=== PATIENT | male | born 1940 | race Caucasian/White ===

== ENCOUNTER 2018-09-20 16:18 | Inpatient (IN) ==
[2018-09-20] MEDS ORDERED: NS 1,000 ML IV ONE (17:16)
[2018-09-20] MEDS ORDERED: FLOMAX PO ONE (17:17)
[2018-09-20 17:53] LABS: HEMATOCRIT 24.6 % (42.0-52.0); HEMOGLOBIN 7.9 g/dL (14.0-18.0); MCH 30.3 PG (27-31); MCHC 32.1 g/dL (33-37); MCV 94.3 FL (81-99); MPV 8.8 FL (7.4-10.4); PLT 244 X1000 (130-400); RBC 2.61 XMIL (4.7-6.1); WBC 28.92 X1000 (4.8-10.8)
[2018-09-20 17:54] LABS: BASO# 0.05 X1000 (0.0-0.2); BASO% 0.2 % (0.0-0.8); EOS# 0.01 X1000 (0.0-0.7); IMM GRAN# 1.43 X1000 (0.0-0.04); IMM GRAN% 4.9 % (0.0-0.5); LYMPH# 0.51 X1000 (1.2-3.4); LYMPH% 1.8 % (20.5-51.1); MONO# 1.68 X1000 (0.11-0.59); MONO% 5.8 % (1.7-9.3); NEUT# 25.24 X1000 (1.4-6.5); NEUT% 87.3 % (42.2-75.2)
[2018-09-20 18:06] LABS: ALBUMIN 2.9 g/dL (3.5-5.0); CALCIUM 7.5 mg/dL (8.8-10.2); CREATININE 3.4 mg/dL (0.7-1.2); POTASSIUM 4.9 mmol/L (3.5-5.1); TOTAL BILIRUBIN 0.28 mg/dL (0.20-1.00); TOTAL PROTEIN 5.7 g/dL (6.3-8.3)
[2018-09-20 18:18] LABS: INR 1.01; PROTIME 14.1 Seconds (11.0-16.0)
[2018-09-20 18:19] LABS: PTT 36.6 Seconds (22.3-41.8)
[2018-09-20] MEDS ORDERED: ROCEPHIN 1 GM in NS 50 ML IV ONE (18:21)
[2018-09-20] MEDS ORDERED: NS 500 ML IV ONE (18:21)
[2018-09-20 18:27] LABS: URINE SOURCE CLEAN CATCH
[2018-09-20 18:28] LABS: BILIRUBIN URINE NEGATIVE (NEGATIVE); BLOOD URINE SMALL (NEGATIVE); COLOR YELLOW; GLUCOSE URINE NEGATIVE (NEGATIVE); KETONE URINE NEGATIVE (NEGATIVE); LEUKOCYTES URINE NEGATIVE (NEGATIVE); NITRITE URINE NEGATIVE (NEGATIVE); PH URINE 5.5; PROTEIN URINE 50 mg/dL (NEGATIVE); SP GRAVITY URINE 1.011; TURBIDITY URINE CLEAR (CLEAR); UROBILINOGEN URINE NORMAL (NORMAL)
--- NOTE | 2018-09-20 18:28 | PROVIDER DOCUMENTATION ---
HPI-Male Problem - General Chief Complaint: Flank Pain Stated Complaint: KIDNEY STONE --CANCER PT-FAMILY ROOM Time Seen by Provider: 09/20/18 16:53 Source: patient Allergies/Adverse Reactions: Patient Allergies Allergy/AdvReac Type Severity Reaction Status Date / Time No Known Allergies Allergy Verified 02/20/12 08:53 Home Medications: Home Medication List Medication Instructions Recorded Confirmed Last Taken Type Cyanocobalamin/Folic Acid [Vitamin 1 each PO DAILY 02/20/12 09/20/18 02/20/12 07:00 History [id number] Acid Tablet] Lisinopril [Zestril] 10 mg PO DAILY 02/20/12 09/20/18 02/20/12 07:00 History Metoprolol/Hydrochlorothiazide 1 each PO BID 02/20/12 09/20/18 02/20/12 07:00 History [Lopressor Hct 50-25 Tablet] SIMVAstatin [Zocor] 40 mg PO QHS 02/20/12 09/20/18 02/20/12 07:00 History Aspirin 325 mg PO DAILY 09/20/18 09/20/18 Unknown History Insulin Aspart [Novolog Flexpen] 100 units SQ PRN 09/20/18 09/20/18 Unknown History Insulin Detemir [Levemir Flextouch] 15 unit SQ HS 09/20/18 09/20/18 Unknown History - History of Present Illness-Male Nature of Presenting Problem: HPI: Pt presents from his cancer center after having labs drawn at their facility, he had a UTI and was sent to US for renal study. He had a 7mm stone in r ureter, obstructing with hydronephrosis. He states he was given a 1 l bolus of NS and levaquin. he has a history of RI and small cell lung cancer. He complains of right sided flank pain. Location of Complaint: reports: right flank Radiation: reports: periumbilical Quality of Pain: reports: none Severity in ED: reports: mild Onset/Duration: reports: 2 days ago Timing: reports: improving Context/Activities at Onset: reports: none Urinary Symptoms: reports: hematuria Associated Symptoms: reports: none Associated Symptoms: reports: cough, malaise, weakness Similar Symptoms Previously?: Yes Recently seen or treated by another doctor?: No Review of Systems - Adult - REVIEW OF SYSTEMS - ADULT Constitutional: reports: fatique, weight loss Eyes: reports: no symptoms reported Ears, Nose, Mouth & Throat: reports: no symptoms reported Cardiovascular: reports: no symptoms reported Respiratory: reports: no symptoms reported Gastrointestinal: reports: see HPI Genitourinary: reports: no symptoms reported Musculoskeletal: reports: no symptoms reported Integumentary: reports: no symptoms reported Neurological: reports: no symptoms reported Psychiatric: reports: no symptoms reported Endocrine: reports: no symptoms reported Hematologic/Lymphatic: reports: no symptoms reported Allergic/Immunologic: reports: no symptoms reported All Other Systems: Reviewed and Negative Past History - Adult - PAST MEDICAL HISTORY-ADULT Review of Records: reports: Old Records Reviewed, Nursing Assessment Review, Medications Reviewed, Social history reviewed & non-contributory. Major Childhood Illnesses: reports: denies history Cardiovascular: reports: denies history Respiratory: reports: cancer Gastrointestinal: reports: denies history Obstetrical/Gynecological: reports: denies history Genitourinary: reports: kidney stones Musculoskeletal: reports: denies history Neurological: reports: denies history Endocrine/Immune: reports: denies history Other Conditions: reports: denies history - IMMUNIZATION STATUS Childhood Immunizations: See Nurse Assessment Flu Vaccine: See Nurse Assessment - FAMILY HISTORY Family History: reviewed, not pertinent - SOCIAL HISTORY Smoking: denies Substance Use: none/never Alcohol Use Frequency: never Living Situation: family Physical Exam-General - PHYSICAL EXAM-ADULT Initial Vital Signs Reviewed: Yes - CONSTITUTIONAL General Appearance: appears well, alert - EYES Eyes: PERRL/EOMI, pink conjunctivae - HEAD, EARS, NOSE, MOUTH & THROAT HENMT: normocephalic/atraumatic, moist mucous membranes - NECK Neck: non-tender, full range of motion - RESPIRATORY Respiratory: chest non-tender, lungs clear, normal breath sounds. negative: crackles, rales, rhonchi, stridor, wheezing - CARDIOVASCULAR Cardiovascular: normal peripheral pulses, regular rate, rhythm, no edema - GASTROINTESTINAL (ABDOMEN) Abdominal Exam: normal bowel sounds, non tender, soft - MUSCULOSKELETAL Back Exam: CVA tenderness Extremity: normal range of motion, non-tender, normal gait Peripheral Pulses: radial (R): 2+, radial (L): 2+, dorsalis-pedis (R): 2+, dorsalis-pedis (L): 2+ - SKIN Integumentary: normal color, normal turgor, warm/dry - NEUROLOGIC Neurologic: grossly normal - PSYCHIATRIC Psych/Mental Status: normal mood/affect, normal thought content, normal thought process, oriented x 3 Progress - PLAN OF CARE/RESULTS Progress/Plan/Lab Results: Vital Signs - 8 hr 09/20/18 16:35 09/20/18 17:52 09/20/18 17:58 Temperature 98.5 F 100.1 F H Pulse Rate 108 H 100 H 101 H Respiratory Rate 20 30 H 30 H Blood Pressure 130/77 141/67 141/67 O2 Sat by Pulse Oximetry 94 L 92 L 92 L 09/20/18 18:00 09/20/18 18:01 09/20/18 19:01 Temperature Pulse Rate 100 H 101 H 98 H Respiratory Rate 35 H 30 H 16 Blood Pressure 138/79 141/81 O2 Sat by Pulse Oximetry 93 L 92 L 97 Laboratory Results - last 24 hr 09/20/18 09/20/18 09/20/18 17:35 17:35 17:35 WBC 28.92 H RBC 2.61 L Hgb 7.9 L Hct 24.6 L MCV 94.3 MCH 30.3 MCHC 32.1 L RDW Std Deviation 19.0 H Plt Count 244 MPV 8.8 Immature Gran % (Auto) 4.9 H Neut % (Auto) 87.3 H Lymph % (Auto) 1.8 L Navarro % (Auto) 5.8 Eos % (Auto) 0.0 Baso % (Auto) 0.2 Immature Gran # (Auto) 1.43 H Neut # (Auto) 25.24 H Lymph # (Auto) 0.51 L Navarro # (Auto) 1.68 H Eos # (Auto) 0.01 Baso # (Auto) 0.05 PT INR PTT (Actin FS) Sodium 131 L Potassium 4.9 Chloride 98 Carbon Dioxide 20 L Anion Gap 13 BUN 38 H Creatinine 3.4 H Estimated GFR/1.73 m2 18 BUN/Creatinine Ratio 11 Glucose 136 H Calculated Osmolality 274 Calcium 7.5 L Total Bilirubin 0.28 AST 19 ALT 30 Alkaline Phosphatase 161 H Creatine Kinase Troponin T Total Protein 5.7 L Albumin 2.9 L Globulin 2.8 Albumin/Globulin Ratio 1.0 Plasma Lactate 0.8 Urine Source Urine Color Urine Turbidity Urine pH Ur Specific Loving Urine Protein Ur Glucose (Stick) Ur Ketones (Stick) Urine Blood Urine Nitrite Urine Bilirubin Urobilinogen Dipstick Urine Leukocytes Urine WBC (Auto) Urine RBC (Auto) U Epithel Cells (Auto) Urine Bacteria (Auto) Urine Crystals Small Round Cells Urine Casts Urine Yeast-like Cells 09/20/18 09/20/18 09/20/18 17:35 17:35 17:35 WBC RBC Hgb Hct MCV MCH MCHC RDW Std Deviation Plt Count MPV Immature Gran % (Auto) Neut % (Auto) Lymph % (Auto) Navarro % (Auto) Eos % (Auto) Baso % (Auto) Immature Gran # (Auto) Neut # (Auto) Lymph # (Auto) Navarro # (Auto) Eos # (Auto) Baso # (Auto) PT 14.1 INR 1.01 PTT (Actin FS) 36.6 Sodium Potassium Chloride Carbon Dioxide Anion Gap BUN Creatinine Estimated GFR/1.73 m2 BUN/Creatinine Ratio Glucose Calculated Osmolality Calcium Total Bilirubin AST ALT Alkaline Phosphatase Creatine Kinase 33 Troponin T 0.024 Total Protein Albumin Globulin Albumin/Globulin Ratio Plasma Lactate Urine Source Urine Color Urine Turbidity Urine pH Ur Specific Loving Urine Protein Ur Glucose (Stick) Ur Ketones (Stick) Urine Blood Urine Nitrite Urine Bilirubin Urobilinogen Dipstick Urine Leukocytes Urine WBC (Auto) Urine RBC (Auto) U Epithel Cells (Auto) Urine Bacteria (Auto) Urine Crystals Small Round Cells Urine Casts Urine Yeast-like Cells 09/20/18 18:00 WBC RBC Hgb Hct MCV MCH MCHC RDW Std Deviation Plt Count MPV Immature Gran % (Auto) Neut % (Auto) Lymph % (Auto) Navarro % (Auto) Eos % (Auto) Baso % (Auto) Immature Gran # (Auto) Neut # (Auto) Lymph # (Auto) Navarro # (Auto) Eos # (Auto) Baso # (Auto) PT INR PTT (Actin FS) Sodium Potassium Chloride Carbon Dioxide Anion Gap BUN Creatinine Estimated GFR/1.73 m2 BUN/Creatinine Ratio Glucose Calculated Osmolality Calcium Total Bilirubin AST ALT Alkaline Phosphatase Creatine Kinase Troponin T Total Protein Albumin Globulin Albumin/Globulin Ratio Plasma Lactate Urine Source CLEAN CATCH Urine Color YELLOW Urine Turbidity CLEAR Urine pH 5.5 Ur Specific Loving 1.011 Urine Protein 50 A Ur Glucose (Stick) NEGATIVE Ur Ketones (Stick) NEGATIVE Urine Blood SMALL A Urine Nitrite NEGATIVE Urine Bilirubin NEGATIVE Urobilinogen Dipstick NORMAL Urine Leukocytes NEGATIVE Urine WBC (Auto) <10 Urine RBC (Auto) <10 U Epithel Cells (Auto) <10 Urine Bacteria (Auto) NEGATIVE Urine Crystals Not Reportable Small Round Cells Not Reportable Urine Casts Not Reportable Urine Yeast-like Cells PRESENT Orders Category Date Time Status Cardiac Monitoring DIRECTED Care 09/20/18 17:58 Active IV Insertion ORDERED Care 09/20/18 17:58 Completed Notify MD of + Sepsis Screen NOW Care 09/20/18 17:58 Active Notify Physician As Ordered Care 09/20/18 17:58 Active Saline Loc NOW Care 09/20/18 17:17 Active NPO Diet 09/21/18 00:01 Active CHEST-1 VIEW [RAD] Stat Exams 09/20/18 17:58 Completed BLOOD CULTURE [BLDCUL] Stat Lab 09/20/18 17:35 Results CBC WITH ELECTRONIC DIFF [HEME] Stat Lab 09/20/18 17:35 Completed CK PROFILE [SP CHEM] Stat Lab 09/20/18 17:35 Completed COMPREHENSIVE METABOLIC PANEL [CHEM] Stat Lab 09/20/18 17:35 Completed LACTATE, PLASMA [CHEM] Lab 09/20/18 21:00 Uncollected LACTATE, PLASMA [CHEM] Lab 09/21/18 00:00 Uncollected LACTATE, PLASMA [CHEM] Q3H Lab 09/20/18 17:35 Completed LACTATE, PLASMA [CHEM] Stat Lab 09/20/18 19:23 Uncollected PROTIME WITH INR [COAG] Stat Lab 09/20/18 17:35 Completed PTT [COAG] Stat Lab 09/20/18 17:35 Completed TROPONIN T Stat Lab 09/20/18 17:35 Completed URINALYSIS W/POSS RFLX CULT [URINALYSIS] Stat Lab 09/20/18 18:00 Completed URINE MANUAL MICROSCOPIC [URINALYSIS] Stat Lab 09/20/18 18:00 Completed 0.9% Sodium Chloride Inj [Ns] 1,000 ml Med 09/20/18 17:16 Discontinued IV 999 mls/hr 0.9% Sodium Chloride Inj [Ns] 500 ml Med 09/20/18 18:21 Discontinued IV Wide Open mls/hr CefTRIAXONE [Rocephin] 1 gm Med 09/20/18 18:21 Discontinued 0.9% Sodium Chloride Inj [Ns] 50 ml IV NOW Tamsulosin [Flomax] Med 09/20/18 17:17 Discontinued 0.4 mg PO NOW ONE Oxygen Device Stat Oth 09/20/18 17:58 Active A/P: UTI/ Nephrolithisis 7 mm on R obstructing stone. Elevated WBC. Dr franco will do procedure tomorrow. AB started, sepsis protocol started. Pt not in pain at the moment. admit to Dr bee. Vitals stable. Result Diagrams: 09/20/18 17:35 09/20/18 17:35 - XRAY 1 XRAY Study: Chest Impression: Normal ([facility] [address] , [address], [place] [address] Department of Imaging Patient: DENISSE GROVER EADM Date: 09/20/18#: [id number] : 1940DM [facility] [id number] Age/Sex: 77/MRoom/Bed: Loc: ED Ordering Physician: Thierry Thompson MD Family Physician: Primo Walker MD Reason for Procedure: sepsis ___ Signed EXAM: CHEST-1 VIEW - 09/20/2018 HISTORY: sepsis TECHNIQUE: Portable chest COMPARISON: 02/20/2012 FINDINGS: Heart size appears upper normal. There are sternal wires from interval surgery. There is opacity at the medial right base which may relate to atelectasis, consolidation, or mass lesion. The remainder of the lungs appear essentially clear. There is no pleural effusion or pneumothorax identified. IMPRESSION: Opacity at medial right base which may relate to atelectasis, consolidation, or mass lesion. Electronically signed by Zelalem Solo 09/20/2018 6:43 PM 09/20/18 1843 Interpreting Physician: Zelalem Solo MD Dictated Date/Time: 09/20/18 1840 cc: Thierry Thompson MD; Primo Walker MD) - CONSULTS/PCP/HOSPITALIST Notification #1 *Consult/PCP/Hospitalist*: Dr Bee Time Discussed: 19:33 Consult Disposition: Admit Departure - Departure Date of Disposition Decision: 09/20/18 Time of Disposition Decision: 19:32 DIAGNOSIS: Nephrolithiasis Disposition: ADMITTED INPATIENT 09 Certified Medical Emergency: Emergent Condition: Stable Additional Freetext Instructions: We have examined and treated you today on an emergency basis only. This was not a substitute for, or an effort to provide, complete medical care. In most cases, you must let your doctor check you again. Tell your doctor about any new or lasting problems. We cannot recognize and treat all injuries or illnesses in one Emergency Department visit. If you had special tests, such as X-rays or CT scans, will be reviewed by radiologist and will call you if there are any new suggestions Follow up with primary care provider in 1 to 2 days if no improvement. If you do not have a primary care provider, you need to choose one as soon as possible. Take medicines as prescribed. Monitor for any side effects or adverse events from medications. If any side effect, adverse event or rash develops, or if you suspect any other adverse reaction to the medication, then discontinue the medication immediately and contact clinic /PCP or go to the nearest ER. Narcotic meds / sedative meds instruction - patent advised not to drive, operate any machinery or go into water after taking meds as it may impair mental ability to react to the situation in an appropriate manner. Continue other current medicines. Follow up with PCP within 24-48 hours, or sooner if symptoms worsen or fail to improve. Patient / guardian verbalizes understanding of treatment plan, medication, and side effects and agrees with treatment plan. Patient leaves ER in stable condition and ambulatory state. Return to ER as needed. Discharge instructions reviewed verbally and given to patient in written form. Follow up with primary care provider. Referrals and Follow-Ups: Primo Walker MD [Primary Care Provider] - - Critical Care Note This patient required my direct & personal management of CC.: No Attestation - Physician/ CIARRA Attestation Patient care was provided by Advanced Practice Provider:: No The physician spent face to face time with patient:: Yes Advanced Practice Provider documentation review:: Supervising physician onsite and consulted in the evaluation and care of this patient. The physician did have a face to face encounter with the patient.
[2018-09-20 18:33] LABS: UR EPITHELIAL CELLS <10 /HPF (<10); URINE BACTERIA NEGATIVE /HPF; URINE RBC <10 /HPF (<10); URINE WBC <10 /HPF (<10)
[2018-09-20 18:39] LABS: URINE YEAST PRESENT
--- NOTE | 2018-09-20 18:46 | Diag Imaging Result Doc PS360 ---
EXAM: CHEST-1 VIEW - 09/20/2018 HISTORY: sepsis TECHNIQUE: Portable chest COMPARISON: 02/20/2012 FINDINGS: Heart size appears upper normal. There are sternal wires from interval surgery. There is opacity at the medial right base which may relate to atelectasis, consolidation, or mass lesion. The remainder of the lungs appear essentially clear. There is no pleural effusion or pneumothorax identified. IMPRESSION: Opacity at medial right base which may relate to atelectasis, consolidation, or mass lesion. Electronically signed by Zelalem Solo 09/20/2018 6:43 PM
--- NOTE | 2018-09-20 21:51 | HISTORY AND PHYSICAL ---
PRIMARY CARE PHYSICIAN: Dr. Primo Walker. CHIEF COMPLAINT: Fever, chills. HISTORY OF PRESENTING ILLNESS: A 77-year-old male with a history of diabetes mellitus type 2, hypertension, AAA, recent diagnosis of lung cancer, and recent coronary bypass, who had presented to his cancer center for treatment, and at that time, he had labs drawn which did show he had acute kidney injury. He was apparently sent for an ultrasound which did show a left hydronephrosis with suspected ureteral stone and also a 7 mm stone in the right ureter. His findings were discussed with his urologist by the ER physician, and it was thought that he would need admission for further management. At the time of my examination, the patient had denied any headache, chest pain, shortness of breath, or any weight changes but stated that he did not feel well. PAST MEDICAL HISTORY: Includes diabetes mellitus type 2; hypertension; BPH; AAA; nephrolithiasis; lung cancer recently diagnosed, on chemotherapy; coronary artery disease, status post coronary bypass recently on August 11; atrial fibrillation. PAST SURGICAL HISTORY: Coronary bypass, AAA repair, lithotripsy. ALLERGIES: No known drug allergies. CURRENT MEDICATIONS: Include aspirin 325 mg p.o. daily, NovoLog FlexPen dosage not know, Levemir 15 units subcutaneous at bedtime, lisinopril 10 mg p.o. daily, metoprolol/hydrochlorothiazide 50/25 1 p.o. b.i.d., simvastatin 40 mg p.o. at bedtime. SOCIAL HISTORY: He is a former smoker. No history of alcohol or illicit drug use. FAMILY HISTORY: No history of coronary disease. REVIEW OF SYSTEMS: Fourteen-point review of system is as in HPI. Other systems negative. PHYSICAL EXAMINATION: GENERAL: Cooperative, friendly male. He is resting more comfortably now. VITAL SIGNS: Temperature 100.1 degrees, pulse 100, respiration 30, blood pressure 141/67. HEENT: Atraumatic, normocephalic. Extraocular movements intact. PERRLA. NECK: No masses. CHEST: Bibasilar rales. CARDIOVASCULAR: Regular rate and rhythm. ABDOMEN: Soft. Positive bowel sounds. EXTREMITIES: No edema. NEUROLOGIC: He is awake, alert, oriented x3. GENITOURINARY: No bladder distention. SKIN: Warm. LABORATORIES AND STUDIES: Sodium 131, potassium 4.9, chloride 98, CO2 is 20, creatinine 3.4, glucose is 136. WBCs 28.92, hemoglobin 7.9, hematocrit 24.6, platelets 224,000. UA shows small blood. ASSESSMENT: This is a 77-year-old male with a history of diabetes mellitus type 2, hypertension, recent diagnosis of lung cancer, status post coronary bypass recently, who initially had presented to his cancer center, and at that time, he had laboratories drawn which it was suspected he had a urinary tract infection. It was also noted that he had a markedly elevated white count. He was sent for an ultrasound at [facility] which did show a left hydronephrosis with possible stone and also a right ureteral 7 mm stone. The case was discussed with Urology who recommended the patient be admitted for further management. 1. Left hydronephrosis with suspected ureteral stone. 2. Right ureteral stone at 7 mm. 3. Acute kidney injury. 4. Leukocytosis. 5. Coronary artery disease, status post recent coronary bypass. 6. Recent diagnosis of lung cancer, on chemotherapy. 7. Diabetes mellitus type 2. 8. Hypertension. PLAN: 1. We will admit the patient to medical floor with telemetry. 2. We will keep the patient NPO. 3. We will give him adequate pain control and antiemetics as needed. 4. We will continue with gentle hydration. 5. We will consult Urology. 6. We will check blood cultures, and the patient will be started on antibiotics 7. We will monitor his renal function. 8. We will obtain records of his recent coronary bypass and recent chemotherapy. 9. We will monitor blood glucose and put the patient on sliding scale insulin regimen. 10. We will monitor blood pressure and resume antihypertensive agents. 11. We will put the patient on deep vein thrombosis prophylaxis. SCDs. 12. We will continue to follow and reassess and make further recommendation based on the patient's clinical course. cc: MD Primo Mitchell MD MTDD
[2018-09-20] MEDS ORDERED: ZOFRAN IV PRN (22:10)
[2018-09-20] MEDS: HUMULIN R SUBQ SCH (22:45)
[2018-09-20] MEDS: ZOSYN 2.25 GM in NS 50 ML IV SCH (23:00)
[2018-09-20] MEDS: NS 1,000 ML IV SCH (23:00)
[2018-09-21] MEDS: ZOSYN 2.25 GM in NS 50 ML IV SCH ×4 (03:56→20:32)
[2018-09-21] MEDS: HUMULIN R SUBQ SCH ×4 (06:08→21:00)
[2018-09-21 08:01] LABS: BASO# 0.05 X1000 (0.0-0.2); BASO% 0.3 % (0.0-0.8); HEMATOCRIT 23.6 % (42.0-52.0); HEMOGLOBIN 7.5 g/dL (14.0-18.0); IMM GRAN# 1.21 X1000 (0.0-0.04); IMM GRAN% 6.1 % (0.0-0.5); LYMPH# 0.48 X1000 (1.2-3.4); LYMPH% 2.4 % (20.5-51.1); MCH 30.5 PG (27-31); MCHC 31.8 g/dL (33-37); MCV 95.9 FL (81-99); MONO# 1.29 X1000 (0.11-0.59); MONO% 6.5 % (1.7-9.3); MPV 8.7 FL (7.4-10.4); NEUT# 16.96 X1000 (1.4-6.5); NEUT% 84.7 % (42.2-75.2); PLT 274 X1000 (130-400); RBC 2.46 XMIL (4.7-6.1); WBC 19.99 X1000 (4.8-10.8)
[2018-09-21 08:17] LABS: CALCIUM 7.3 mg/dL (8.8-10.2); CREATININE 3.7 mg/dL (0.7-1.2); POTASSIUM 4.8 mmol/L (3.5-5.1)
[2018-09-21] MEDS ORDERED: LOPRESSOR PO ONE (09:02)
--- NOTE | 2018-09-21 09:50 | CONSULTATION ---
DATE OF CONSULTATION: 09/21/2018 ATTENDING AND REFERRING PHYSICIAN: Hospitalist. HISTORY OF PRESENT ILLNESS: This 77-year-old male with history of renal lithiasis and lung cancer was going to start his 2nd round of chemotherapy. He was noted to have a marked increase in his creatinine level. A renal ultrasound revealed marked left hydroureteronephrosis down to a probable 7 mm stone obstructing the left ureter. Also noted was a probable right renal stone that was nonobstructing. The patient states he has passed many stones throughout his life. He states he has had shockwave lithotripsy for stones. He currently denies any pains. He states he has had one previous round of chemotherapy, and was to start his second round yesterday. PAST MEDICAL HISTORY: Diabetes, hypertension, elevated cholesterol, peripheral vascular disease, coronary artery disease, history of renal lithiasis, nondisplaced pelvic and left hip fracture 6 years ago, and lung cancer. CURRENT MEDICATIONS: Documented on the chart. PAST SURGICAL HISTORY: Open abdominal aortic aneurysm repair, coronary artery bypass grafting, and extracorporeal shockwave lithotripsy. SOCIAL HISTORY: He smoked cigarettes for many years but none for a year. ETOH use rare. ALLERGIES: No known drug allergies. REVIEW OF SYSTEMS: He states he was feeling well. He has had no recent pulmonary or bowel problems. He states he is breathing without difficulty. He has had no stroke or seizure. PHYSICAL EXAMINATION: General: A normally developed, well-nourished, age apparent, white male, oriented in all ways and cooperative. HEENT: Normal for age. Lungs: Clear. Cardiovascular: Regular rate and rhythm. Abdomen: Flat. Soft, nontender. No hepatosplenomegaly or masses. Normal bowel sounds. Back: No CVA tenderness at present. : Normal male. Both testes down. Scrotal exam is normal. No inguinal hernias. Rectal: Deferred until surgery. Extremities: No clubbing, cyanosis or edema. Neurologic: No focal deficits. LABORATORY: On evaluation, he has a white count at admission of 28.9 thousand. After IV antibiotics, his white count today is 19.9 thousand. His hemoglobin 7.5, hematocrit 23.6 and platelets are 274,000. Serum sodium is 132, potassium 4.8, chloride 100, bicarb 19, BUN 37, and creatinine 3.7. Renal ultrasound is as noted in the HPI. IMPRESSION: 1. Patient with multiple medical problems and a probable left distal ureteral stone with left hydroureteronephrosis. There is also a right renal stone. 2. Left pyelonephritis. PLAN: Cystoscopic exam, bilateral retrograde ureteral pyelograms, left ureteroscopy with basket extraction of stone or laser lithotripsy as needed. Placement of a left double-J stent. The planned procedure, benefits versus risks, and possible complications, including, but not limited to, bleeding, infection, not finding a stone, not finding a cause for the obstructed left system, not finding the ureteral orifices, need for further surgery was discussed. He seems to understand and desires to proceed. cc: MD Primo Moncada MD
[2018-09-21] MEDS: NS 1,000 ML IV SCH ×2 (10:30→21:53)
[2018-09-21 10:53] LABS: BANDS 4 % (0-1); LYMPHS 2 % (21-51); MONO 7 % (1-9); SEGS 83 % (42-75)
[2018-09-21 10:54] LABS: ANISOCYTOSIS 1+; POLYCHROM 1+
[2018-09-21] MEDS ORDERED: DIPRIVAN 1% ONE (11:50)
[2018-09-21] MEDS ORDERED: XYLOCAINE-MPF 2% ONE (11:50)
[2018-09-21] MEDS ORDERED: TYLENOL PO PRN (12:39)
[2018-09-21] MEDS ORDERED: NEOSPORIN G.U. IRRIGANT ONE (12:52)
[2018-09-21] MEDS ORDERED: OFIRMEV 1000 MG/ISOTONIC SOLN 1,000 MG/100 ML BOTTLE ONE (12:59)
[2018-09-21] MEDS ORDERED: NEO-SYNEPHRINE ONE (13:05)
[2018-09-21] MEDS ORDERED: ZOFRAN ONE (13:05)
[2018-09-21] MEDS ORDERED: SODIUM CHLORIDE 0.9% 10 ML ONE (13:05)
[2018-09-21] MEDS ORDERED: PITRESSIN ONE (13:16)
[2018-09-21] MEDS ORDERED: QUELICIN (DOSE) ONE (13:32)
--- NOTE | 2018-09-21 14:20 | PROGRESS NOTE ---
DATE: 09/21/2018 INTERVAL HISTORY: Mr. Calderon was admitted for suspected urosepsis, acute pyelonephritis and acute renal failure and acute left-sided hydronephrosis. He does have recent history of CABG and newly diagnosed lung cancer. He did have spikes of fever overnight. I saw him in his room. His and family is at bedside. I discussed with them about my exam finding. He currently denies any nausea, vomiting. He is feeling better. He still has some occasional abdominal pain. Oral cavity is moist. Vitals suggest temperature of 101 degrees, pulse of 97, respiratory rate 20, blood pressure 135/61, saturating 91% on room air. PHYSICAL EXAMINATION: Appears very weak and tremulous and appears to have chills. Oral cavity is moist. Air entry bilaterally equal. He has inspiratory crackles bilateral infrascapular region. No wheeze or rhonchi. S1, S2 normal. No murmur or gallop. Abdomen soft, nontender. Active bowel sounds he has bilateral lower extremity edema. He has well-healing scar of CABG on the chest, a groin incision on the right and a venesection scar on the left lower extremity which all have been healing well. LABS: Suggestive of persistent leukocytosis, normocytic anemia, normal platelet count, hyponatremia, hypochloremia, what appears to be acute kidney injury, looks like his baseline creatinine was 1.3 in 2012. Urinalysis was unremarkable though. Microbiology. Blood cultures are in lab reports. Renal ultrasound had suggested left-sided hydronephrosis and suspected left stone. ASSESSMENT AND PLAN: 1. Urosepsis from suspected left acute pyelonephritis because of left ureteric stone leading to obstruction. Continue intravenous fluids, intravenous Zosyn. Follow up with final blood culture results. I will consider sending another urine culture if required. The initial urine culture has not shown any growth. 2. Acute kidney injury. His baseline creatinine according to previous record was 1.4 in 2012, his current suspected acute kidney injury likely could be in the setting of post obstructive renal failure. Continue intravenous fluids and follow up serial kidney function. Urologist has been consulted and patient is likely to undergo cystoscopy, bilateral retrograde pyelogram and left ureteric double-J stent today. I will continue to monitor kidney function. 3. History of coronary artery disease, myocardial infarction and coronary artery bypass graft in August 2018. Continue atorvastatin. I will resume his aspirin after cleared by Urology in next 48 hours and I will start him on his metoprolol as tolerated. 4. History of insulin-dependent diabetes mellitus. I will continue frequent blood sugar checks and sliding scale insulin. 5. Recent diagnosis of right lower lung cancer. He is currently on chemotherapy. 6. Disposition. Patient's condition is serious. I will continue to closely monitor his vitals and keep him on telemetry. Plan of care discussed with patient and his family at bedside, all of the questions have been answered. cc: MD Primo Diggs MD MTDD
[2018-09-21] MEDS: NORCO-7.5 PO PRN (17:54)
--- NOTE | 2018-09-21 18:27 | OPERATIVE NOTE ---
PROCEDURE DATE: 09/21/2018 SURGEON: Demetrius Jordan MD. PREOPERATIVE DIAGNOSIS: 1. Left pyelonephritis with left hydroureteronephrosis and left ureteral stone. 2. Possible stone in the right kidney. POSTOPERATIVE DIAGNOSIS: 1. Left pyelonephritis with left hydroureteronephrosis and left ureteral stone. 2. Stone in the right kidney. PROCEDURE PERFORMED: Cystoscopic exam, right retrograde ureteral pyelogram, left ureteroscopy, laser lithotripsy of the large stone basket extraction of fragments, placement of left double-J stent. ANESTHESIA: General via laryngeal mask. FINDINGS: Cystoscopic exam: Urethra-greater than 21 Yemeni without stricture. Prostate- hypertrophy of the lateral lobes, elevated bladder neck, length approximately 4 cm. Bladder- normal ureteral orifices bilaterally. Grade 1 trabeculations. No papillary lesions. Large diverticulum on the left midlateral wall that was easily scoped. Right retrograde ureteral pyelogram reveals a filling defect in the lower pole calyx consistent with stone. Left ureteroscopy reveals an approximate 8 mm stone at the left ureteropelvic junction or very proximal left ureter. Rectal exam reveals a prostate of about 40 g, smooth and symmetric. exam reveals uncircumcised male. Both testes are very atrophic and high-riding. INDICATION FOR PROCEDURE: This 77-year-old male with history of renal lithiasis currently undergoing chemotherapy for lung cancer, developed left flank pain and just not feeling well. Evaluation at oncology revealed significant left hydroureteronephrosis and a probable left ureteral stone. His white count was 28,000. His creatinine was over 3. DESCRIPTION OF PROCEDURE: After informed consent was obtained from the patient, him receiving IV antibiotics, he was taken to the main OR cystoscopy room, placed in the supine position. General anesthesia via laryngeal mask was achieved. He was then placed in the low lithotomy position and prepped and draped in the usual sterile fashion for cystoscopic exam. A 21-Yemeni cystoscope was passed the patient's urethra, prostate, and bladder with findings noted above. An 8-Yemeni cone- tipped catheter was passed through the cystoscope, engaged right ureteral orifice. Contrast was injected with findings as noted above. The 8-Yemeni cone-tipped catheter was removed and a 0.035 ZIPwire was passed through the cystoscope, engaged left ureteral orifice advanced up into the kidney after some manipulation. The cystoscope was removed leaving the ZIPwire in place to act as a safety wire. A 7-Yemeni Storz semi-rigid ureteroscope was advanced through the patient's urethra, prostate, and in the bladder. A 0.035 Sensor wire was passed through the ureteroscope and engaged the left ureteral orifice, advanced up into the left ureter. The ureteroscope was advanced over the Sensor wire, beneath the ZIPwire up into the ureter. The ureteroscope was slowly advanced up the ureter until it reached the very proximal ureter or UPJ area were a large stone was visualized. A 4 wire Nitinol basket was placed. The basket was pushed past the stone and opened. The stone was trapped in the basket. A 365 micron laser fiber was placed. The laser was set at 8 hertz and 8 will and the stone was fragmented. However it was very difficult to keep the stone in the line of fire of the laser due to its position and how the ureter was fixed. One of the wires of the basket was accidentally lasered and the basket pulled out away from the stone. A new basket was placed and the stone was again trapped and the stone was completely fragmented. The largest fragment was removed and sent to Pathology for analysis. The ureteroscope was returned to the area. No further large fragments were visualized. The ureteroscope was removed. A 6-Yemeni, 24 cm double-J stent was passed over the ZIPwire and up into the kidney. The renal end was verified by fluoroscopic exam, bladder end directly visualized. Stent removal string was removed. The bladder was drained. Cystoscope was removed. and rectal exam performed. He tolerated the procedure well. Estimated blood loss less than 1 mL. He was taken to the recovery room in good condition. cc: MD Primo Moncada MD
[2018-09-21] MEDS: LIPITOR PO SCH (20:33)
[2018-09-22] MEDS: ZOSYN 2.25 GM in NS 50 ML IV SCH ×4 (02:21→21:02)
[2018-09-22] MEDS: HUMULIN R SUBQ SCH ×4 (06:41→21:02)
[2018-09-22 07:11] LABS: BASO# 0.04 X1000 (0.0-0.2); BASO% 0.2 % (0.0-0.8); HEMATOCRIT 22.5 % (42.0-52.0); IMM GRAN# 1.33 X1000 (0.0-0.04); IMM GRAN% 7.2 % (0.0-0.5); LYMPH# 0.78 X1000 (1.2-3.4); LYMPH% 4.2 % (20.5-51.1); MCH 29.9 PG (27-31); MCHC 31.1 g/dL (33-37); MCV 96.2 FL (81-99); MONO% 4.9 % (1.7-9.3); MPV 8.5 FL (7.4-10.4); NEUT# 15.36 X1000 (1.4-6.5); NEUT% 83.5 % (42.2-75.2); PLT 314 X1000 (130-400); RBC 2.34 XMIL (4.7-6.1); RDW 19.2 % (11.5-14.5); WBC 18.41 X1000 (4.8-10.8)
[2018-09-22 07:38] LABS: CREATININE 3.3 mg/dL (0.7-1.2); MAGNESIUM 1.5 mg/dL (1.5-2.7); POTASSIUM 4.4 mmol/L (3.5-5.1)
[2018-09-22 07:49] LABS: CALCIUM 6.9 mg/dL (8.8-10.2)
[2018-09-22] MEDS: TUMS PO SCH ×2 (09:24→21:01)
[2018-09-22] MEDS: MAGNESIUM SULFATE 2 GM/S.W.I. 2 GM/50 ML IVPB IV SCH ×2 (10:25→15:38)
[2018-09-22] MEDS ORDERED: LASIX PO ONE (14:18)
[2018-09-22] MEDS: LOPRESSOR PO SCH ×2 (15:54→21:01)
--- NOTE | 2018-09-22 16:04 | PROGRESS NOTE ---
DATE: 09/22/2018 INTERVAL HISTORY: He underwent cystoscopy by Urology yesterday and left-sided proximal ureteropelvic junction had a stone which was basket extracted and a double-J stent was placed. He tolerated the procedure well. His T-max was 99.7 degrees. He was tachycardic with heart rate 80 to 100 and was saturating 99% to 90% on room air. A repeat urinalysis with culture has been ordered. SUBJECTIVE: He is feeling fine denies new complaints. He states occasionally he feels short of breath. VITALS: Temperature of 98.2 degrees, pulse 102, respiratory rate 21, blood pressure 129/59, saturating 90% on room air. PHYSICAL EXAMINATION: General: Does not appear in any acute distress. Oral cavity is moist. He had inspiratory crackles bilateral infrascapular region. No wheeze or rhonchi. S1, S2 normal. No murmur, rub, or gallop. He has a well-healing scar of recent CABG. Abdomen soft, nontender, active bowel sounds. Bilateral ankle edema. Well-healing scar of groin incision on the right and a scar of left medial lower extremity where the vein was taken out for his CABG. LABS: Suggestive of persistent leukocytosis, normocytic anemia, normal platelet count, hyponatremia, improving BUN and creatinine but only slightly, hypocalcemia, hypomagnesemia. Microbiology. His urine culture is growing yeast. Two of the 4 blood cultures are growing yeast. ASSESSMENT AND PLAN: 1. Urosepsis from left-sided acute pyelonephritis because of left ureteric stone leading to obstructive uropathy status post intravenous fluid resuscitation. I will continue intravenous Zosyn for sepsis. I will follow up repeat urine culture and sensitivity. Two of the 4 blood cultures are growing yeast so I will start him on intravenous micafungin, get CT scan of the abdomen and pelvis to rule out fungal ball, consult Infectious Disease. 2. Acute kidney injury. His baseline creatinine is not known. In 2011 it was 1.3. I will follow up serial BMP. He may currently be experiencing acute kidney injury because of postobstructive renal failure. He is now status post double-J ureteric stent on the left. Urology on board. 3. History of coronary artery disease, myocardial infarction and coronary artery bypass graft in August 2018. Start metoprolol and continue atorvastatin. Start aspirin tomorrow onwards . 4. History of insulin-dependent diabetes mellitus. Continue frequent blood sugar check and sliding scale insulin. 5. Recent diagnosis of right lower lung cancer currently on chemotherapy. DISPOSITION: Patient's condition still remains tenuous considering ongoing sepsis. Plan of care discussed with patient and his at bedside. All of the questions have been answered. cc: MD Primo Diggs MD
--- NOTE | 2018-09-22 17:31 | Diag Imaging Result Doc PS360 ---
EXAM: CT ABDOMEN/PELVIS W/O CONTRAST - 09/22/2018 HISTORY: Evaluate for fungal pyelonephritis/fungal ball TECHNIQUE: CT abdomen/pelvis without contrast. No contrast administered per request of the referring provider due to elevated creatinine/diminished GFR. COMPARISON: 02/20/2012 CT pelvis FINDINGS: There is irregular opacity at the right middle lobe lung. There are bilateral pleural effusions with adjacent atelectasis. There is a double pigtail left ureteral stent which extends from the renal pelvis to the urinary bladder. There is no gross hydronephrosis identified. There are bilateral perinephric edema and/or scarring. There are some cortical thinning/scarring at the upper right kidney. There are nonobstructing stones in the right kidney. There are small cortical calcifications in the bilateral kidneys. Evaluation for nephritis is limited without administered intravenous contrast. There is ectasia of the infrarenal abdominal aorta up to 3.1 cm. There are atherosclerotic calcifications noted. There are no substantial abnormalities of the liver, spleen, or adrenal glands identified. There is a nonspecific calcification at the pancreatic body. There are multiple small calcified gallstones in the gallbladder. There is no pericholecystic inflammation identified. There is no evidence of bowel obstruction. There is colonic diverticulosis which is most extensive at the sigmoid. There is no indication of diverticulitis. There is no abscess identified. There is no free air or substantial free fluid identified. IMPRESSION: Left ureteral stent in place. No substantial hydronephrosis. Bilateral perinephric edema and/or scarring Cholelithiasis. Nonspecific calcification at body of pancreas. No bowel obstruction. Uncomplicated colonic diverticulosis. Ectasia of abdominal aorta up to 3.1 cm. Atherosclerotic calcifications. Irregular opacity at right middle lobe lung. Bilateral pleural effusions with adjacent atelectasis. This exam was performed using automated exposure control, adjustment of mA or kV according to patient size, and/or use of iterative reconstruction technique. Electronically signed by Zelalem Solo 09/22/2018 5:29 PM
[2018-09-22] MEDS: MYCAMINE 100 MG in NS 100 ML IV SCH (17:54)
[2018-09-22] MEDS: LIPITOR PO SCH (21:02)
[2018-09-22 21:40] LABS: URINE SOURCE CLEAN CATCH
[2018-09-22 22:14] LABS: BILIRUBIN URINE NEGATIVE (NEGATIVE); BLOOD URINE LARGE (NEGATIVE); COLOR YELLOW; GLUCOSE URINE NEGATIVE (NEGATIVE); KETONE URINE NEGATIVE (NEGATIVE); LEUKOCYTES URINE SMALL (NEGATIVE); NITRITE URINE NEGATIVE (NEGATIVE); PROTEIN URINE 30 mg/dL (NEGATIVE); SP GRAVITY URINE 1.006; TURBIDITY URINE HAZY (CLEAR); UROBILINOGEN URINE NORMAL (NORMAL)
[2018-09-22 22:25] LABS: UR EPITHELIAL CELLS <10 /HPF (<10); URINE BACTERIA NEGATIVE /HPF; URINE RBC TNTC /HPF (<10); URINE WBC 20-40 /HPF (<10)
[2018-09-22 22:26] LABS: URINE CASTS NONE SEEN; URINE CRYSTALS NONE SEEN; URINE SMALL ROUND CELLS NONE SEEN; URINE YEAST PRESENT
[2018-09-23] MEDS: ZOSYN 2.25 GM in NS 50 ML IV SCH (06:25)
[2018-09-23] MEDS: NORCO-7.5 PO PRN (06:46)
[2018-09-23] MEDS: HUMULIN R SUBQ SCH ×4 (06:47→21:57)
--- NOTE | 2018-09-23 07:26 | EKG Report ---
Test Performed on : 09/22/2018 5:13:32 PM Test Reason : Tachycardia Blood Pressure : / mmHG Vent. Rate : 089 BPM Atrial Rate : 089 BPM P-R Int : 192 ms QRS Dur : 102 ms QT Int : 390 ms P-R-T Axes : 047 000 068 degrees QTc Int : 474 ms Normal sinus rhythm. Possible Anterior infarct , age undetermined Abnormal ECG When compared with ECG of 20-FEB-2012 12:08, Questionable change in QRS duration Borderline criteria for Anterior infarct are now present Confirmed by Aaron ENAMORADO, Primo Morris ([id number]) on 09/24/2018 7:28:02 PM
[2018-09-23 08:03] LABS: BASO# 0.04 X1000 (0.0-0.2); BASO% 0.2 % (0.0-0.8); EOS# 0.03 X1000 (0.0-0.7); EOS% 0.2 % (0.0-10.0); HEMATOCRIT 25.2 % (42.0-52.0); IMM GRAN# 0.74 X1000 (0.0-0.04); IMM GRAN% 4.3 % (0.0-0.5); LYMPH# 0.86 X1000 (1.2-3.4); LYMPH% 4.9 % (20.5-51.1); MCH 30.1 PG (27-31); MCHC 31.7 g/dL (33-37); MCV 94.7 FL (81-99); MONO# 1.63 X1000 (0.11-0.59); MONO% 9.4 % (1.7-9.3); MPV 8.8 FL (7.4-10.4); PLT 397 X1000 (130-400); RBC 2.66 XMIL (4.7-6.1); RDW 19.1 % (11.5-14.5)
[2018-09-23 08:11] LABS: CALCIUM 7.7 mg/dL (8.8-10.2); CREATININE 2.9 mg/dL (0.7-1.2); POTASSIUM 4.2 mmol/L (3.5-5.1)
[2018-09-23] MEDS: ASPIRIN PO SCH (08:18)
[2018-09-23] MEDS: TUMS PO SCH ×2 (08:18→21:57)
[2018-09-23] MEDS: LOPRESSOR PO SCH ×2 (08:18→21:57)
--- NOTE | 2018-09-23 08:50 | Diag Imaging Result Doc PS360 ---
RETROGRADES 2 OR 3 FILMS - 09/21/2018 INDICATION: LEFT STONE, RIGHT RETROGRADE TECHNIQUE: Right sided ureterogram. The exam was performed by the patient's urologist. 30 images were obtained. COMPARISON: CT from 09/22/2018 FINDINGS: The right-sided nephrogram is grossly normal. No masses or strictures. On the left side, a wire was placed into the renal collecting system. A left nephroureteral stent was placed in good position. IMPRESSION: No complication. Electronically signed by Raj Gant 09/23/2018 8:47 AM
--- NOTE | 2018-09-23 09:14 | CONSULTATION ---
DATE OF CONSULTATION: 09/23/2018 CONCLUSION: The patient has a fungemia which is secondary to a fungal urinary tract infection which itself also is secondary to an obstructing left ureteral stone causing a left-sided hydroureteronephrosis. RECOMMENDATIONS: I have discontinued Zosyn. I agree with treating the patient with micafungin. Dr. Jordan has performed a laser lithotripsy and placement of a stent on the left side. I will treat the patient for 2 weeks with day # 1 being the first day the patient's repeat blood cultures are negative. Since the aortic graft was placed 8-10 years ago it is thoroughly epithelialized and treatment can be for 2 weeks instead of 6 weeks. DISCUSSION: The patient tells me that approximately a week ago he started having fever and chills. He did not have dysuria. He did not have any abdominal or flank pain. LABORATORY DATA: His laboratory studies show a CBC with a white count of 18,410, hemoglobin 7, platelet count 314,000 creatinine is 3.3. GFR is 18. Alkaline phosphatase is 161. Urinalysis showed white cells and yeast. Urine culture is pending. One of two blood cultures is growing yeast. CT scan showed a left hydroureteronephrosis and the presence of a left ureteral stone. PAST MEDICAL HISTORY/REVIEW OF SYSTEMS: Eyes and ears: Patient denies trouble hearing or seeing. Neck: No stiffness. Respiratory: No cough or shortness of breath. Cardiac: No chest pain or palpitations. GI: No nausea, vomiting, or diarrhea. : See present illness. Bones joints muscles: No swollen joints or muscle aching. Endocrine: The has diabetes mellitus but no thyroid disease. Integument: No rashes. PREVIOUS HOSPITALIZATIONS AND OPERATIONS: Approximately 5 weeks ago the patient had myocardial infarction and subsequent coronary artery bypass grafting done in [place], [place]. The patient has also had surgical treatment for an aortic aneurysm with placement of a graft. This occurred approximately 8 to 10 years ago. The patient had bronchoscopy at which time a diagnosis of lung cancer was made. MEDICAL DISEASES: Positive for diabetes mellitus, aortic aneurysm, renal calculi, hyperlipidemia, benign prostatic hypertrophy, and lung cancer which was diagnosed by bronchoscopy and patient is being treated with chemotherapy for it. INFECTIOUS DISEASE HISTORY: Negative for pneumonia and UTI. FAMILY HISTORY: Positive for diabetes mellitus. Negative for cancer and hypertension. SOCIAL HISTORY: The patient lived, [place] the city. He is . He does not have any pets at home. He is retired from working at the [employer]. He smoked cigarettes. He stopped approximately of 5 weeks ago when he had his heart attack. He occasionally has an alcoholic beverages. He does not abuse drugs. ALLERGIES: His chart lists no known drug allergies. HOME MEDICATIONS: Lipitor, insulin and metoprolol. PHYSICAL EXAMINATION: Vital Signs: Temperature is 97.5 degrees, pulse 85, respirations 14, blood pressure 136/65. Patient is 5 feet 11 inches tall, weighs 168 pounds. General: This is an ill-appearing elderly male. He is in no acute distress. Head/eyes/ears/nose/throat: He can hear my spoken words and see near objects. He does not have any white coating on his tongue. Neck: No meningismus. Lungs: Clear to auscultation. Cardiovascular: Heart rate is regular. Thorax: The patient's midline sternal incision is intact. Abdomen: Soft and nontender. The patient has some incisions from when he had his aortic aneurysm surgery. All the incisions have healed. Neurologic: The patient is awake he can move his extremities. There is no tremor. His sensation is intact to touch. His memory as regarding his medical history appeared intact. Integument: No rash noted. Thank you for the consult. cc: MD Primo Garcia MD [facility]
[2018-09-23] MEDS: MYCAMINE 100 MG in NS 100 ML IV SCH (16:58)
[2018-09-23] MEDS: LIPITOR PO SCH (21:57)
[2018-09-24] MEDS: HUMULIN R SUBQ SCH ×4 (06:24→22:12)
[2018-09-24 07:35] LABS: BASO# 0.05 X1000 (0.0-0.2); BASO% 0.3 % (0.0-0.8); EOS# 0.03 X1000 (0.0-0.7); EOS% 0.2 % (0.0-10.0); HEMATOCRIT 23.8 % (42.0-52.0); HEMOGLOBIN 7.5 g/dL (14.0-18.0); IMM GRAN# 0.49 X1000 (0.0-0.04); LYMPH# 1.18 X1000 (1.2-3.4); LYMPH% 7.1 % (20.5-51.1); MCH 29.8 PG (27-31); MCHC 31.5 g/dL (33-37); MCV 94.4 FL (81-99); MONO# 1.87 X1000 (0.11-0.59); MONO% 11.3 % (1.7-9.3); MPV 8.9 FL (7.4-10.4); NEUT# 12.94 X1000 (1.4-6.5); NEUT% 78.1 % (42.2-75.2); PLT 414 X1000 (130-400); RBC 2.52 XMIL (4.7-6.1); RDW 18.9 % (11.5-14.5); WBC 16.56 X1000 (4.8-10.8)
[2018-09-24] MEDS: TUMS PO SCH ×2 (09:25→22:13)
[2018-09-24] MEDS: LOPRESSOR PO SCH ×2 (09:25→22:13)
[2018-09-24] MEDS: ASPIRIN PO SCH (09:26)
[2018-09-24] MEDS ORDERED: CALMOSEPTINE OINTMENT TOP PRN (12:05)
[2018-09-24] MEDS: MYCAMINE 100 MG in NS 100 ML IV SCH (16:14)
--- NOTE | 2018-09-24 19:47 | PROGRESS NOTE ---
DATE: 09/24/2018 SUBJECTIVE: Mr. Calderon says he feels better today than he has in a long time. OBJECTIVE: Temperature 98.3, pulse 90, respirations 14, blood pressure 118/56. Pupils are equal and round. Lungs are clear in all lung molina. Cardiovascular exam with regular rhythm and rate without murmur or S3. Abdomen is soft. Skin is warm and dry. Urine output was 1800 mL. ASSESSMENT AND PLAN: 1. Fungemia secondary to fungal urinary tract infection secondary to obstructing left ureter stone with left-sided hydroureteronephrosis. Discontinue the Zosyn. Patient is on micafungin. Dr. Venegas performed a laser lithotripsy with placement of stent in left side. Will treat for two months, with day #1 being the first day and repeat blood cultures are negative. Since the aortic graft was placed 8 to 10 years ago it is thoroughly epithelialized and treatment can be for two weeks instead of six weeks. Will see if we can let him go home in the morning. 2. Status post coronary artery bypass graft surgery. No sign of cardiac ischemia. 3. Adenocarcinoma of the lung, undergoing chemotherapy. Will discuss with Dr. Pitt about the fungal treatment, whether we can switch to p.o. Note that his hemoglobin was 7.5 and hematocrit 23. He is due to get iron treatment, I think, tomorrow. cc: Primo Walker MD
[2018-09-24] MEDS: LIPITOR PO SCH (22:13)
[2018-09-25] MEDS: HUMULIN R SUBQ SCH ×4 (06:45→22:29)
[2018-09-25 07:26] LABS: CALCIUM 7.8 mg/dL (8.8-10.2); CREATININE 2.2 mg/dL (0.7-1.2); POTASSIUM 3.9 mmol/L (3.5-5.1)
[2018-09-25] MEDS: LOPRESSOR PO SCH ×2 (08:51→22:29)
[2018-09-25] MEDS: ASPIRIN PO SCH (08:51)
[2018-09-25] MEDS: TUMS PO SCH ×2 (08:52→22:29)
--- NOTE | 2018-09-25 13:19 | PROGRESS NOTE ---
DATE: 09/25/2018 SUBJECTIVE: He feels much better. He would like to try and go home. We are waiting to see what the sensitivity is on his fungal studies. He grew out Maty glabrata and hopefully we can send him out on p.o. Diflucan. He feels good. Remains afebrile. OBJECTIVE: Temperature 97.7 degrees, pulse 72, respirations 18, blood pressure 132/57. Pupils are equal and round. No distended neck veins. Lungs are clear in all lung molina. Cardiovascular Examination: Regular rhythm and rate without murmur or S3. Abdomen is soft. Skin is warm and dry. ASSESSMENT AND PLAN: 1. Fungemia secondary to a fungal urinary tract infection secondary to obstruction of the left ureter with a stone, had left-sided hydroureteronephrosis. He had been treated with Zosyn and put on micafungin. Hopefully, this is sensitive to Diflucan and he can go home today. We will treat for 2 months with day 1 being the day after repeat blood cultures are negative. He had an aortic graft placed 8 years ago and should be thoroughly epithelialized so treatment can go for 2 weeks instead of 6 weeks, so maybe he will just need 2 weeks of therapy. 2. History of coronary artery bypass graft last month. 3. Adenocarcinoma of the lung, undergoing chemotherapy. 4. Microcytic iron deficiency anemia. We have been giving him some iron treatments. LAB: Hematocrit is 23, hemoglobin 7.5, white blood cell count was 16,560 yesterday. His platelet count was 414,000. cc: Primo Walker MD
[2018-09-25] MEDS: MYCAMINE 100 MG in NS 100 ML IV SCH (16:10)
--- NOTE | 2018-09-25 17:52 | INFECTIOUS DISEASE CONSULT REP ---
DATE: 09/25/2018 ADDENDUM REPORT Following is an addendum to the consult I did earlier on Jameson Calderon. I went back to see the patient. I did an ophthalmoscopic examination of both eyes. I did not see any white lesions in either eye. The patient told me his vision was intact. cc: Nehemias Pitt MD
--- NOTE | 2018-09-25 21:06 | INFECTIOUS DISEASE PROGRESS NO ---
DATE: 09/25/2018 PRESENT ILLNESS: The patient has a Maty glabrata fungemia which I think is secondary to a fungal urinary tract infection which is secondary to an obstructing left ureteral calculus causing hydroureteronephrosis. MEDICATIONS: The patient is receiving micafungin. Day #1 of treatment will be the first day that the patient's repeat blood cultures are sterile. PHYSICAL EXAMINATION: Vital Signs: Temperature is 97.7, pulse 72, respirations 18, blood pressure 132/57. General: This is a chronically ill-appearing elderly male. He is in no acute distress. Head, Eyes, Ears, Nose and Throat: He can hear my spoken words and see near objects. He does not have any white patches on his tongue. Neck: There is no pain in his neck when he moves the neck or if he moves his head. Lungs: Clear to auscultation. Cardiovascular: Heart rate is regular. Abdomen: Abdomen and flanks soft and nontender. Neurologic: The patient is alert. He is able to ambulate. There is no tremor. Integument: No rash. LAB AND X-RAY: The patient's blood culture grew Maty glabrata. The patient's CBC shows a white count of 16,560, hemoglobin 7.5 and platelet count 414,000. Creatinine is 2.2. GFR is 29. Repeat blood cultures are pending. ASSESSMENT AND PLAN: Patient has a Maty glabrata fungemia which I think is secondary to a Maty glabrata urinary tract infection, even though we did not grow the fungus in the urine. My plan is to continue with micafungin. Repeat blood cultures were drawn today. If the 48 hour reading of the blood culture is negative, then the patient will have a PICC inserted. I have put in a consult for the patient to have a micafungin 100 mg IV daily for 14 days as an outpatient, preferably at home, but if the patient does not have coverage to do it at home then the patient will come to either the [facility] or the [facility]. COMORBIDITIES: He was hospitalized recently. He had coronary artery bypass grafting done. He also had a lung biopsy which showed cancer. He is receiving chemotherapy for the cancer. The patient also has diabetes mellitus, benign prostatic hypertrophy, and, as mentioned above, lung cancer being treated with chemotherapy. While the patient has been at the hospital where he had the bypass surgery performed, he undoubtedly also received antibiotics. cc: Nehemias Pitt MD
[2018-09-25] MEDS: LIPITOR PO SCH (22:30)
[2018-09-26] MEDS: HUMULIN R SUBQ SCH ×4 (06:27→23:56)
[2018-09-26 07:42] LABS: BASO# 0.06 X1000 (0.0-0.2); BASO% 0.3 % (0.0-0.8); EOS# 0.04 X1000 (0.0-0.7); EOS% 0.2 % (0.0-10.0); HEMATOCRIT 24.1 % (42.0-52.0); HEMOGLOBIN 7.6 g/dL (14.0-18.0); IMM GRAN# 0.98 X1000 (0.0-0.04); IMM GRAN% 5.2 % (0.0-0.5); LYMPH# 1.62 X1000 (1.2-3.4); LYMPH% 8.7 % (20.5-51.1); MCH 29.9 PG (27-31); MCHC 31.5 g/dL (33-37); MCV 94.9 FL (81-99); MONO# 1.68 X1000 (0.11-0.59); MPV 8.9 FL (7.4-10.4); NEUT# 14.33 X1000 (1.4-6.5); NEUT% 76.6 % (42.2-75.2); PLT 614 X1000 (130-400); RBC 2.54 XMIL (4.7-6.1); RDW 19.2 % (11.5-14.5); WBC 18.71 X1000 (4.8-10.8)
[2018-09-26 08:19] LABS: BANDS 4 % (0-1); LYMPHS 4 % (21-51); MONO 5 % (1-9); SEGS 85 % (42-75)
[2018-09-26] MEDS: LOPRESSOR PO SCH ×2 (08:54→23:56)
[2018-09-26] MEDS: TUMS PO SCH ×2 (08:54→23:56)
[2018-09-26] MEDS: ASPIRIN PO SCH (08:56)
[2018-09-26] MEDS ORDERED: VENOFER 200 MG in NS 150 ML IV ONE (09:20)
--- NOTE | 2018-09-26 10:26 | PROGRESS NOTE ---
DATE: 09/26/2018 SUBJECTIVE: He has had a good night. Feels much better. He remains afebrile. OBJECTIVE: Temperature 97.6 degrees, pulse 79, respirations 22, blood pressure 134/68. Pupils are equal and round. Lungs are clear in all lung molina. Cardiovascular: Regular rhythm and rate without murmur or S3. Abdomen is soft. Skin is warm and dry. Urine output: Looks good. LABORATORY DATA: From this morning, white count 18,710, hematocrit 24, hemoglobin 7.6 with an MCV of 94, platelet count 614,000. Chemistries from yesterday: Creatinine was down to 0.2. Sodium 135, potassium 3.9, chloride 103, bicarbonate 25, BUN 31. Blood sugar 245, 215, and 173. ASSESSMENT AND PLAN: 1. Maty glabrata fungemia, thought secondary to fungal urinary tract infection secondary to obstructing left ureteral calculus. Day 1 will be the first day of negative blood cultures, and I think he is going to need 2 weeks of this. 2. Recent coronary artery bypass grafting bypass surgery. Seems to be doing well from that standpoint with no sign of cardiac ischemia. 3. Chronic kidney disease. I want to get him established with Dr. Liz here. His renal function has improved since his admission. I think his creatinine is at baseline around to 2.0. 4. Adenocarcinoma of the left lung, undergoing chemotherapy. Had his first course already and due to get his 2nd course when he is better. 5. Iron deficiency anemia. They have been giving him some iron. Also has probably anemia from chronic disease. We will give him some iron today. cc: Primo Walker MD
[2018-09-26] MEDS: MYCAMINE 100 MG in NS 100 ML IV SCH (16:21)
--- NOTE | 2018-09-26 18:19 | INFECTIOUS DISEASE PROGRESS NO ---
DATE: 09/26/2018 PRESENT ILLNESS: Mr. Calderon is being treated for a Maty glabrata fungemia, which is thought to be secondary to a urinary tract infection with hydroureteronephrosis. MEDICATIONS: He is receiving micafungin 100 mg IV daily. Day 1 of treatment will be the first day of sterile blood cultures. PHYSICAL EXAMINATION: Vital Signs: Temperature is 97.6 degrees, pulse rate 79, respiratory rate 22, blood pressure 134/68, O2 saturation is 93% on room air. General: This is a chronically ill- appearing, elderly gentleman. He is lying in the bed currently in no acute distress. HEENT: Atraumatic, normocephalic. Oral mucous membranes are pink and moist. Conjunctivae are pale. Neck: Supple. Trachea is midline. Respiratory: Lung sounds are clear to auscultation bilaterally. No work of breathing is noted. Cardiovascular: Heart rate is regular. Pedal pulses are diminished bilaterally. There is trace pretibial and ankle edema bilaterally. Abdomen: Soft, flat, and nontender. Bowel sounds are active. Neurologic: He is awake, alert, oriented, able to ambulate independently. No tremor is noted. LABORATORY AND X-RAY: Today his white count is 18.71, hemoglobin 7.6, platelet count 614,000. No electrolytes were drawn today. His initial blood cultures both grew Maty glabrata and yesterday repeat blood cultures were drawn and are preliminary. Two separate urine cultures have shown no growth on this admission. No imaging reports today. ASSESSMENT AND PLAN: Mr. Calderon is being treated for a Maty glabrata fungemia which is most likely secondary to urinary tract infection. Although nothing grew on the cultures, he did have an obstructing left ureteral calculus. We will continue micafungin. Once sterile blood cultures have been obtained, he will have a PICC line inserted and will have daily micafungin provided at home. He will need a total of 14 days from the first day of sterile blood cultures. These plans have been discussed with and recommended by Dr. Pitt. COMORBIDITIES: Recent chemotherapy for lung cancer, diabetes mellitus, benign prostatic hypertrophy and coronary artery disease with recent CABG. Dictated by WALLACE Abreu for Nehemias Pitt MD cc: Nehemias Pitt MD [facility]
--- NOTE | 2018-09-26 21:16 | NEPHROLOGY CONSULTATION ---
DATE: 09/26/2018 CONSULTING PHYSICIAN: Dr. Mikhail Walker. REASON FOR CONSULTATION: Assistance with chronic kidney disease and nephrolithiasis. HISTORY OF PRESENT ILLNESS: Mr. Calderon is a 77-year-old man with diabetes, hypertension, and abdominal aneurysm. He had recent acute coronary syndrome treated with bypass grafting. Subsequently, diagnosed with lung cancer and has received chemotherapy. In addition to these problems, he had labs collected which demonstrated evidence of acute kidney injury. Imaging at the time demonstrated ureteral obstruction. He was admitted to the hospital, treated with a left ureteral stent. At the time, he was also diagnosed with a fungus ball. Blood cultures grew Maty glabrata, though, his urine culture has not yet grown any organism. His creatinine was 3.4 on admission and peaked at 3.7. We do not have any other recent data but he did have some evidence of chronic kidney disease, given his creatinine was 1.3 back in 2011. His creatinine has improved progressively to 2.[address] of the abdomen which in addition to the above findings demonstrated bilateral scarring. PAST MEDICAL HISTORY: As above. CURRENT MEDICATIONS: Include: Insulin, Zofran, Tylenol, [place], Lipitor, Tums, Lopressor, Mycamine, aspirin, Calmoseptine ointment. ALLERGIES: None. SOCIAL HISTORY: Former smoker. No alcohol or tobacco. FAMILY HISTORY AND REVIEW OF SYSTEMS: Noncontributory otherwise. PHYSICAL EXAMINATION: Vital Signs: Blood pressure 145/57, heart rate 74, respirations 20, afebrile. Generally: Chronically ill-appearing, elderly man, lying in bed. No distress. Skin: Warm and dry with some hyperpigmentation and bruising. Conjunctivae are pink and moist. Pupils are equal round. Oropharynx is clear. Tongue is moist. Dentition normal. Neck: Supple. Trachea is midline. Neck vein distention is not present. Heart: PMI nondisplaced. Midline surgical scar is healing well. Regular rate and rhythm without murmurs, rubs, or gallops. Lungs: Have equal excursion, equal breath sounds. No crackles, wheezes, accessory muscle use or retractions. Abdomen: Soft, nontender. Bowel sounds present. No organomegaly, masses, bruits. Extremities: Have no edema, clubbing, or cyanosis. IMPRESSION: Acute kidney injury overlying chronic kidney disease. Both likely secondary to obstruction. His creatinine is improving daily and he appears euvolemic. His acidosis is resolved. No hyperkalemia. I have reviewed his medications and no changes are required. His micafungin dose as appropriate. We will follow with you and he will need to follow as an outpatient with us as well. cc: Elijah Liz MD
[2018-09-26] MEDS: LIPITOR PO SCH (23:56)
[2018-09-27] MEDS: HUMULIN R SUBQ SCH ×3 (06:33→15:52)
[2018-09-27 07:22] LABS: HEMOGLOBIN 7.8 g/dL (14.0-18.0); RBC 2.59 XMIL (4.7-6.1); WBC 19.17 X1000 (4.8-10.8)
[2018-09-27 07:23] LABS: BASO# 0.11 X1000 (0.0-0.2); BASO% 0.6 % (0.0-0.8); EOS# 0.07 X1000 (0.0-0.7); EOS% 0.4 % (0.0-10.0); HEMATOCRIT 24.7 % (42.0-52.0); IMM GRAN# 1.16 X1000 (0.0-0.04); IMM GRAN% 6.1 % (0.0-0.5); LYMPH# 1.49 X1000 (1.2-3.4); LYMPH% 7.8 % (20.5-51.1); MCH 30.1 PG (27-31); MCHC 31.6 g/dL (33-37); MCV 95.4 FL (81-99); MONO# 1.71 X1000 (0.11-0.59); MONO% 8.9 % (1.7-9.3); MPV 8.5 FL (7.4-10.4); NEUT# 14.63 X1000 (1.4-6.5); NEUT% 76.2 % (42.2-75.2); PLT 702 X1000 (130-400); RDW 19.6 % (11.5-14.5)
[2018-09-27 07:50] LABS: BANDS 5 % (0-1); LYMPHS 7 % (21-51); MONO 4 % (1-9); SEGS 79 % (42-75)
[2018-09-27 07:53] LABS: CALCIUM 8.1 mg/dL (8.8-10.2); CREATININE 1.9 mg/dL (0.7-1.2); MAGNESIUM 1.6 mg/dL (1.5-2.7); POTASSIUM 3.7 mmol/L (3.5-5.1)
[2018-09-27] MEDS: ASPIRIN PO SCH (08:09)
[2018-09-27] MEDS: TUMS PO SCH (08:09)
[2018-09-27] MEDS: LOPRESSOR PO SCH (08:09)
[2018-09-27] MEDS ORDERED: NS 250 ML ONE (10:20)
[2018-09-27 11:58] LABS: INR 0.93; PROTIME 13.2 Seconds (11.0-16.0)
--- NOTE | 2018-09-27 12:07 | INFECTIOUS DISEASE PROGRESS NO ---
DATE: 09/24/2018 PRESENT ILLNESS: The patient has a fungemia secondary to a fungal urinary tract infection which was caused by an obstructing left ureteral stone. The ureteral stone caused a hydroureteral nephrosis. MEDICATIONS: The patient is receiving Micafungin 1 g IV daily. This is the second day of treatment with that. PHYSICAL EXAMINATION: Vital signs: Temperature 98.5, pulse 84, respirations 20, blood pressure 106/47. General: This is a somewhat ill-appearing elderly male. He is in no acute distress. HEENT: He can hear my spoken words and see near objects. Yesterday I did an ophthalmic examination on the patient's eyes and I did not see any white patches in the eye. He does not have any white patches in his mouth. Neck: The patient does not have any pain in his neck when he moves his neck or his head. Lungs: Clear to auscultation. Cardiovascular: Heart rate is regular. Abdomen and flanks soft and nontender. Neurologic: The patient is awake, alert. He can move his extremities. He is able to ambulate. There is no tremor. He has been up in a chair and walking today. LABORATORY AND X-RAY: CBC shows a white count of 16,560, hemoglobin 7.5, and platelet count 414,000. Urine and blood cultures grew yeast which has not yet been identified. A repeat blood culture will be present tomorrow morning. Repeat urine culture is negative. ASSESSMENT AND PLAN: The patient has fungemia and fungal urinary tract infection secondary to funguria which is secondary to an obstructing left ureteral calculus. The blockage caused a left side hydroureteral nephrosis. The plan is to use Micafungin pending the identification of the fungemia and funguria. The total plan will be to treat the patient for a total of 14 days with an appropriate antifungal agent and day #1 will be the first day that the patient's repeat blood cultures are sterile. COMORBIDITIES: The patient is diabetic, unfortunately also has renal calculi and benign prostatic hypertrophy. He also has lung cancer for which he is taking chemotherapy. cc: Nehemias Pitt MD
[2018-09-27 12:24] VITALS: BP 146/59
--- NOTE | 2018-09-27 14:58 | DISCHARGE SUMMARY ---
ADMISSION DATE: 09/20/2018 DISCHARGE DATE: 09/27/2018 HISTORY: This is a patient of Dr. Primo araujo. A 77-year-old with a history of diabetes mellitus type 2, hypertension, abdominal aortic aneurysm repair, recent diagnosis of lung cancer, recent coronary bypass surgery, and 3 bypasses about a month ago who presented to the cancer center for treatment at this time. Labs were drawn, and he appeared to be in acute kidney injury. Apparently, he was sent for ultrasound and showed left hydronephrosis, suspect ureteral stone, about a 7 mm stone in the right ureter. Findings discussed with urologist and thought that he would need admission, and appeared to have pyelonephritis and hydronephrosis. PAST MEDICAL HISTORY: 1. Diabetes mellitus type 2. 2. Hypertension. 3. Benign prostatic hypertrophy. 4. Abdominal aortic aneurysm repair. 5. Nephrolithiasis. 6. Lung cancer recently diagnosed. 7. On chemotherapy. 8. Coronary artery disease. 9. Status post coronary bypass graft on 08/11. 10. Atrial fibrillation, paroxysmal atrial fib, and rate has been controlled. HOSPITAL COURSE: The patient was admitted with left hydronephrosis, suspected ureter stone, right ureteral stone about 7 mm in measurement, acute kidney injury, and leukocytosis put on antibiotics. He had a retrograde pyelogram done on 09/21/2018 with no complication, right-sided nephrogram and ureterogram. He had a consultation per Dr. Rudi Jordan. Cystoscopic exam, bilateral retrograde ureteral pyelograms, left ureteroscopy with basket extraction of stone or laser lithotripsy was needed. Placement of a double-J stent, and that was planned. Operative report could not find ureteral opening I believe, and so percutaneous nephrostomy tube. He had left pyelonephritis with left hydro ureteronephrosis, left ureteral stone, stone in the right kidney as well. Infectious Disease was asked to see. He was kept on broad-spectrum antibiotics. He turned out to have a fungal urinary tract infection. We put him on micafungin. He grew out Maty glabrata fungemia, which was thought secondary to urinary tract infection receiving micafungin 100 mg daily, day 1 of treatment, first day of sterile cultures. He will be discharged today, and they have his micafungin I believe planned for daily and dosing with home health. Renal function looked good. Color looked good. I did give him some iron while he is here. DISCHARGE MEDICATIONS: 1. Aspirin 81 mg a day. 2. Lipitor 40 mg at bedtime. 3. He has got [place] 7.5 q.4 hours p.r.n. 4. Lopressor 12.5 mg b.i.d., and that is really the only medication he is on at this time. 5. He is taking Tums 500 mg b.i.d. PLAN: Although nothing grew in cultures, he did have obstructing left ureter calculus, so continue micafungin I think a total 14 days. cc: Primo Walker MD
[2018-09-27] MEDS: MYCAMINE 100 MG in NS 100 ML IV SCH (15:53)
--- NOTE | 2018-09-27 17:14 | NEPHROLOGY PROGRESS NOTE ---
DATE: 09/27/2018 SUBJECTIVE: He is lying in bed with no new complaints today. He is anticipating discharge. OBJECTIVE: Vital Signs: Blood pressure 136/63, heart rate 75, respirations 17, afebrile. General: No acute distress. Skin: Warm and dry. Neck: Neck veins are not distended. Heart: Regular. No gallops. Lungs: Equal. No crackles. Abdomen: Soft, nontender. Bowel sounds present. Extremities: No edema, clubbing, or cyanosis. IMPRESSION: Acute kidney injury overlying chronic kidney disease secondary to obstructive uropathy. Labs continue to improve. We will follow him in 2 to 4 weeks as an outpatient. Otherwise okay for discharge from my perspective. cc: Elijah Liz MD
--- NOTE | 2018-09-27 17:50 | INFECTIOUS DISEASE PROGRESS NO ---
DATE: 09/27/2018 PRESENT ILLNESS: Mr. Calderon has a Maty glabrata fungemia which most likely originated from a urinary tract infection with hydroureteronephrosis. MEDICATIONS: He is receiving micafungin 100 mg IV daily. Today is day 2 of his treatment, based on his sterile blood cultures . PHYSICAL EXAMINATION: Vital Signs: Temperature is 98.1 degrees, pulse rate 75, respiratory rate 17, blood pressure 136/63, O2 saturation is 95% on room air. General: This is a chronically ill- appearing elderly gentleman. He is sitting up in a chair currently in no acute distress. HEENT: Atraumatic, normocephalic. Oral mucous membranes are pink and moist. Conjunctivae are pale. Neck: Supple. Trachea is midline. Cardiovascular: Heart rate is regular. Radial and pedal pulses are diminished bilaterally but palpable. Respiratory: Lung sounds are bilaterally clear to auscultation. Abdomen: Soft, flat, nontender. Bowel sounds are active. Neurologic: He is awake, alert, oriented and moving around independently without any tremor noted. LABORATORY AND X-RAY: Today his white count is 19.17, hemoglobin 7.8, platelet count 702,000, creatinine is 1.9, GFR 35. His original blood cultures grew Maty glabrata and most recent blood cultures have shown no growth after 48 hours. No imaging reports today. ASSESSMENT AND PLAN: Mr. Calderon is being treated for a Maty fungemia. He has had sterile blood cultures for the last 2 days. The plan is to put a PICC line in him today, which has already been ordered. This afternoon he will receive a dose of micafungin before he goes home which will be his third dose. Then he will need 11 more days of treatment to complete a 14 day treatment regimen at home. This has already been worked out through [facility] and the patient has been instructed to call our office on Sunday to make an appointment for October 09. These plans have been discussed with and recommended by Dr. Pitt. COMORBIDITIES: For Mr. Calderon include that he is elderly, with acute kidney injury on chronic kidney disease, chemotherapy for lung cancer, diabetes mellitus, coronary artery disease and benign prostatic hypertrophy. Dictated by WALLACE Abreu for Nehemias Pitt MD cc: Nehemias Pitt MD [facility]
== END 2018-09-27 17:15 | disposition home or self-care (01) | DRG 854 ==
LOC: ED 16:18 → SUATTDRO 21:38 → 3N 21:38
PROVIDERS: ATTEND Emergency Medicine
CPT/HCPCS: 36569; 71010; 71045; 74176; 74420; 76000; 76770; 80048; 80053; 81001; 82360; 82550; 82948; 83605; 83735; 84484; 85025; 85610; 85730; 87040; 87077; 87088; 88300; 93005; 93010; 94761; 96361; 96365; 97162; 97530; 99285; A9270; J0131; J0330; J0696; J1756; J2248; J2370; J2405; J2543; J3475; J7030; J7040; J7050; Q9966; Q9967; XXXXX